=== PATIENT | female | born 1960 | race Caucasian/White ===

== ENCOUNTER → 2017-06-07 10:13 | Outpatient (CLI) | payer BC, SELFPAY ==
--- NOTE | 2017-06-07 10:19 | MM_ITS ---
MM Dig screening mamm BI w/CAD CAD Screening COMPARISON: Digital mammograms 12/19/2014 and 02/18/2016 INDICATION: There is a history of breast cancer in the patient's paternal aunt diagnosed after menopause. There has been previous biopsies on each breast. TECHNIQUE: Standard CC and MLO images were obtained. R2 CAD reviewed. FINDINGS: Diffuse heterogenic fibroglandular densities are seen in the central portions of both breast and the findings are fairly symmetrical bilaterally. There are 2 biopsy clips in each breast. There are scattered microcalcifications in both breast which appear to be typical of sclerosing adenosis. There is no suspicious lesion and there are no suspicious microcalcifications. IMPRESSION: Stable exam with diffuse fibro glandular densities throughout. BI-RADS Category: 2 Benign Finding(s) RECOMMENDED FOLLOW-UP: 1YR - 1 YEAR FOLLOW-UP (A letter has been sent to the patient regarding results of the study.)
== END ==
PROVIDERS: Family Provider Internal Medicine Adolescent Medicine; PCP Nurse Practitioner Family; Visit Provider Internal Medicine Adolescent Medicine
DX: Z12.31 Encounter for screening mammogram for malignant neoplasm of breast (principal)
CPT/HCPCS: 77067

== ENCOUNTER → 2018-06-28 10:11 | Outpatient (CLI) | payer BC, SELFPAY ==
--- NOTE | 2018-06-28 10:15 | MM_ITS ---
MM Dig screening mamm BI w/CAD CAD Screening COMPARISON: Digital mammograms with CAD 06/07/2017 and 02/18/2016 INDICATION: There is a history of breast cancer patient maternal aunt diagnosed after menopause. There have been previous biopsies on each breast for benign disease. TECHNIQUE: Standard CC and MLO images were obtained. R2 CAD reviewed. FINDINGS: Prominent diffuse fibroglandular densities are seen throughout both breasts and the findings are bilateral and symmetrical. There are biopsy clips in each breast. Multiple microcalcifications are seen in each breast many of which appear to be typical of sclerosing adenosis. There is no suspicious mass and there are no suspicious microcalcifications. IMPRESSION: Stable exam with no suspicious lesion seen BI-RADS Category: 2 Benign Finding(s) RECOMMENDED FOLLOW-UP: 1YR - 1 YEAR FOLLOW-UP (A letter has been sent to the patient regarding results of the study.)
== END ==
PROVIDERS: PCP Nurse Practitioner Family; Visit Provider Nurse Practitioner Family
DX: Z12.31 Encounter for screening mammogram for malignant neoplasm of breast (principal)
CPT/HCPCS: 77067

== ENCOUNTER → 2019-09-25 08:59 | Outpatient (CLI) | payer BC, SELFPAY ==
--- NOTE | 2019-09-25 09:12 | MM_ITS ---
PROCEDURE: MM DIG SCREENING MAMM BI W/CAD Digital Breast Tomosynthesis Included CLINICAL INDICATION: SCREENING There is a history of breast cancer in the patient's paternal aunt diagnosed after menopause. There have been previous biopsies on each breast for benign disease. COMPARISON: [facility] DIG MAMM-SCREEN KULDIP from 12/29/2014 [facility] DIG MAMM-SCREEN KULDIP from 02/18/2016 [facility] MM Dig screening mamm BI w/CAD from 06/07/2017 [facility] MM Dig screening mamm BI w/CAD from 06/28/2018 TECHNIQUE: Standard CC and MLO images and 3D Tomosynthesis was obtained. R2 CAD reviewed. FINDINGS: Moderately prominent fibroglandular densities are seen in the central portions of both breasts. There are biopsy clips in each breast. There are few scattered benign-appearing microcalcifications in each breast some of which appears suggestive of mild sclerosing adenosis. There is a nodular density deep within the left breast which was likely present previously but shows slight irregularity of the border on today's exam particularly with oriana images. Recommend the patient return for spot compression views and ultrasound for additional evaluation. There are no suspicious microcalcifications. IMPRESSION: Moderate diffuse breast density with possible interval changes small nodular density left breast BI-RAD Category: 0 Need Additional Imaging Evaluation FOLLOW-UP: IMM Immediate Follow-up Recommended (A letter has been sent to the patient regarding results of the study.) Dictated by: Dr. J Luis Cummings MD 09/26/2019 08:[address] J Luis Cummings MD in [place] 09/26/2019 08:34
== END ==
PROVIDERS: PCP Nurse Practitioner Family; Visit Provider Nurse Practitioner Family
DX: Z12.31 Encounter for screening mammogram for malignant neoplasm of breast (principal)
CPT/HCPCS: 77063; 77067

== ENCOUNTER → 2019-10-07 14:09 | Outpatient (CLI) | payer BC, SELFPAY ==
--- NOTE | 2019-10-07 14:16 | MM_ITS ---
PROCEDURE: MM DIG MAMM DX UNILAT LT CAD Digital Breast Tomosynthesis Included CLINICAL INDICATION: ABN MAMM Follow-up abnormal mammogram,, breast nodule COMPARISON: [facility] DIGITAL MAMM-SCREEN BILATERAL from 05/29/2012 [facility] MM Dig screening mamm BI w/CAD from 06/07/2017 [facility] MM Dig screening mamm BI w/CAD from 06/28/2018 MM DIG SCREENING MAMM BI W/CAD from 09/25/2019 US BREAST LT COMPLETE from 10/07/2019 TECHNIQUE: Problem solving views performed along with left breast ultrasound FINDINGS: Average fibroglandular tissue. Stable probably benign calcifications are noted. The area of nodularity appears to compress out on the spot compression view.. There remains some minimal nodularity noted on the CC view measuring approximately 6 mm. This however does not appear significantly changed dating back at least a 06/07/2017. Left breast ultrasound: There is a hypoechoic area at 12 o'clock measuring 6 by 4 mm and may represent a complicated cyst. No suspicious nodules are evident.. At 5 o'clock there is a 5 mm cyst. IMPRESSION: Probably benign findings. Recommend six-month follow-up BI-RAD Category: 3 Probably Benign Finding Short Term Follow-up FOLLOW-UP: 6M 6Month Follow-up (A letter has been sent to the patient regarding results of the study.) Dictated by: Brett Root MD 10/10/2019 13:08 Electronically signed by Brett Root MD in [place] 10/10/2019 13:08
== END ==
PROVIDERS: PCP Nurse Practitioner Family; Visit Provider Nurse Practitioner Family
DX: R92.8 Other abnormal and inconclusive findings on diagnostic imaging of breast (principal)
CPT/HCPCS: 76641; 77061; 77065; G0279

== ENCOUNTER → 2020-04-08 13:48 | Outpatient (CLI) | payer BC, SELFPAY ==
--- NOTE | 2020-04-08 13:52 | MM_ITS ---
PROCEDURE: MM DIG MAMM DX UNILAT LT CAD Digital Breast Tomosynthesis Included CLINICAL INDICATION: ABN MAMM 6 MON F/U Follow-up abnormal mammogram COMPARISON: [facility] MM Dig screening mamm BI w/CAD from 06/28/2018 MG MM DIG SCREENING MAMM BI W/CAD from 09/25/2019 MG MM DIG MAMM DX UNILAT LT CAD from 10/07/2019 US US BREAST LT COMPLETE from 10/07/2019 US US BREAST LT COMPLETE from 04/08/2020 TECHNIQUE: Standard CC and MLO images and 3D Tomosynthesis was obtained. R2 CAD reviewed. FINDINGS: There is average fibroglandular tissue. Mammogram show scattered benign-appearing calcifications. No malignant appearing mass or malignant-appearing microcalcification. There is an area of nodularity in the central aspect of the left breast as seen on the tomogram. This area however does appear to compress out on the spot compression view. Small area of asymmetry noted in the medial aspect of the left breast as before. Tomograms show a stable 5 mm nodule in this region. No new nodules are evident. Clips are present in the left breast laterally. Ultrasound shows a 4 mm hypoechoic nodule at 12 o'clock and a flat like 4 mm hypoechoic nodule at 5 o'clock. At 6 o'clock there is a 3 mm cyst. At 10 o'clock there is an elongated cyst measuring 8 x 9 x 2 mm which may account for some of the mammographic abnormality IMPRESSION: Probably benign findings. Recommend screening mammogram in 6 months with left breast ultrasound follow-up to confirm 1 year stability. BI-RAD Category: 2 Benign Finding(s) FOLLOW-UP: 6M 6Month Follow-up (A letter has been sent to the patient regarding results of the study.) Dictated by: Brett Root MD 04/16/2020 11:09 Brett Root MD in [place] 04/16/2020 11:09
== END ==
PROVIDERS: PCP Nurse Practitioner Family; Visit Provider Nurse Practitioner Family
DX: R92.8 Other abnormal and inconclusive findings on diagnostic imaging of breast (principal)
CPT/HCPCS: 76641; 77061; 77065; G0279

== ENCOUNTER → 2020-10-25 12:52 | Outpatient (CLI) | payer BC, SELFPAY ==
--- NOTE | 2020-10-25 12:57 | MM_ITS ---
PROCEDURE: MM DIG SCREENING MAMM BI W/CAD Digital Breast Tomosynthesis Included CLINICAL INDICATION: ABN MAMM There is a history of breast cancer in the patient's paternal aunt diagnosed after menopause. There have been previous biopsies on each breast disease. COMPARISON: MG MM DIG SCREENING MAMM BI W/CAD from 09/25/2019 MG MM DIG MAMM DX UNILAT LT CAD from 10/07/2019 MG MM DIG MAMM DX UNILAT LT CAD from 04/08/2020 TECHNIQUE: Standard CC and MLO images and 3D Tomosynthesis was obtained. R2 CAD reviewed. FINDINGS: Mild to moderate scattered fibroglandular densities are seen throughout breasts and the findings symmetrical is a biopsy clip in each breast. There a few of benign-appearing microcalcifications in each breast. There are a couple stable small nodular densities central portion left breast. There is no suspicious lesion and no suspicious microcalcifications. IMPRESSION: Moderate breast density with no suspicious lesions seen BI-RAD Category: 2 Benign Finding(s) FOLLOW-UP: 1YR 1 Year Follow-up (A letter has been sent to the patient regarding results of the study.) Dictated by: Dr. J Luis Cummings MD 10/27/2020 08:33 Dr. J Luis Cummings MD in [place] 10/27/2020 08:33
--- NOTE | 2020-10-25 12:58 | US_ITS ---
PROCEDURE: US BREAST LT COMPLETE CLINICAL INDICATION: ABN MAMM COMPARISON: US US BREAST LT COMPLETE from 04/08/2020 FINDINGS: There is a stable small benign-appearing cyst 6 o'clock position mid breast measuring 0.3x 0.4 by point 0.2 cm. There is a stable small oval hypoechoic solid lesion at the 12 o'clock position near the nipple measuring 0.4 x 0.2 by 0.3 cm in this may be a small fibroadenoma. There are normal appearing nodes in the axilla. IMPRESSION: Stable small benign-appearing cyst is stable hypoechoic lesion either a small fibroadenoma a small cyst with internal debris, continue with yearly screening mammography Dictated by: Dr. J Luis Cummings MD 10/27/2020 09:05 Dr. J Luis Cummings MD in [place] 10/27/2020 09:05
== END ==
PROVIDERS: PCP Nurse Practitioner Family; Visit Provider Nurse Practitioner Family
DX: R92.8 Other abnormal and inconclusive findings on diagnostic imaging of breast (principal)
CPT/HCPCS: 76641; 77063; 77067

== ENCOUNTER 2021-04-18 22:16 | Emergency (ER) | payer BC, SELFPAY ==
[2021-04-18 22:17] VITALS: BP 145/78; PULSE 103; RESP 18; TEMP 36.7; O2SAT 95; BMI 36.0
--- NOTE | 2021-04-18 22:24 | ECG_ITS ---
APPROVED REPORT Exam: Resting ECG HR:101 bpm ECG Measurements Heart Rate 101 AXES AR 186 P 54 QRSd 72 QRS 73 QT 350 T 52 QTc 453 Conclusion Sinus tachycardia Poor R wave progression Abnormal ECG Electronically signed by : Ad Brian MD 04/19/2021 17:56:25
[2021-04-18 22:58] LABS: POC Glucose,Bedside 126 (70-110)
--- NOTE | 2021-04-18 23:32 | CT_ITS ---
PROCEDURE INFORMATION: Exam: CT Head Without Contrast Exam date and time: 04/18/2021 11:32 PM Age: 60 years old Clinical indication: Dizziness TECHNIQUE: Imaging protocol: Computed tomography of the head without contrast. Radiation optimization: All CT scans at this facility use at least one of these dose optimization techniques: automated exposure control; mA and/or kV adjustment per patient size (includes targeted exams where dose is matched to clinical indication); or iterative reconstruction. COMPARISON: No relevant prior studies available. FINDINGS: Brain: Normal. No hemorrhage. Unremarkable white matter. No mass effect. Cerebral ventricles: No ventriculomegaly. Paranasal sinuses: Mild mucosal thickening in the left frontal and ethmoid sinuses. Mastoid air cells: Visualized mastoid air cells are well aerated. Bones/joints: Unremarkable. No acute fracture. Soft tissues: Unremarkable. IMPRESSION: No acute intracranial pathology
[2021-04-18 23:41] LABS: Basophils # 0.1 K/mm3 (0-0.2); Basophils % 0.5 % (0.1-2.0); Eosinophils # 0.2 K/mm3 (0.0-0.4); Hematocrit 46.7 % (37.0-47.0); Hemoglobin 15.3 g/dL (12.2-16.2); Lymphocytes # 3.9 K/mm3 (0.7-4.5); Lymphocytes % 35.7 % (10-50); Mean Corpuscular HGB Conc 32.7 g/dL (31.8-35.4); Mean Corpuscular Hemoglobin 30.6 pg (27.0-31.2); Mean Corpuscular Volume 93.7 fl (81-99); Mean Platelet Volume 8.5 fl (7.4-10.4); Monocytes # 0.5 K/mm3 (0.1-1.0); Monocytes % 4.9 % (1.7-9.3); Neutrophils # 6.3 K/mm3 (1.8-7.8); Platelet Count 241 K/mm3 (142-424); Red Blood Count 4.99 M/mm3 (4.20-5.40); Red Cell Distribution Width 13.3 % (11.5-17.5); White Blood Count 11.1 K/mm3 (4.8-10.8)
[2021-04-18 23:49] LABS: Alanine Aminotransferase 23 U/L (12-78); Albumin Level 4.2 g/dl (3.5-5.0); Albumin/Globulin Ratio 1.6 (1.1-1.8); Alkaline Phosphatase 69 U/L (38-126); Anion Gap 9.8 mEq/L (5-15); Aspartate Amino Transferase 28 U/L (14-36); Bilirubin,Total 0.2 mg/dl (0.2-1.3); Blood Urea Nitrogen 15 mg/dl (7-17); Calcium 9.5 mg/dl (8.4-10.2); Carbon Dioxide 29 mmol/L (22.0-30.0); Chloride 103 mmol/L (98-107); Creatinine Clearance Estimated 97 mL/min (50-200); Estimated Glomerular Filt Rate 102 ml/min (>60); GFR (African American) 123 ML/MIN (>60); Globulin 2.7 g/dL (1.3-3.2); Glucose 121 mg/dl (74-100); Potassium 3.8 mmoL/L (3.5-5.1); Sodium 138 mmol/L (136-145); Total Protein,Serum 6.9 g/dl (6.3-8.2)
[2021-04-18 23:54] LABS: C-Reactive Protein 2.3 mg/L (0-4)
[2021-04-19 00:10] LABS: Procalcitonin < 0.030 ng/mL (0.0-2.0)
--- NOTE | 2021-04-19 00:13 | [facility].EDDIZZ ---
ED Disposition Clinical Impression: Episodic lightheadedness Disposition: Home, Self-Care Condition on Discharge: Good Instructions: Dizziness, Nonvertigo Additional Instructions: call pcp for close f/u and work up Referrals: Val Urbano APRN [Primary Care Provider] - - Critical Care Critical Care Time: No Attestation: On 04/18/21, the high probability of a clinically significant, sudden or life threatening deterioration of the following system(s) required my full and direct attention, intervention and personal management. The time I documented below is in addition to time spent performing reported procedures but includes the following listed in this critical care notation. Medical Decision Making - Medical Records Medical records reviewed: Yes: I reviewed the patient's medical records. - Alex Inquiry Pt receiving controlled substance: No Vital Signs: 04/18/21 22:17 Temperature 98.0 F Temperature Source Oral Pulse Rate [Apical] 103 H Respiratory Rate 18 Blood Pressure [Right Arm] 145/78 H Blood Pressure Mean [Right Arm] 100 Blood Pressure Source [Right Arm] Automatic Cuff Blood Pressure Position [Right Arm] Sitting 02 Sat by Pulse Oximetry 95 Oxygen Delivery Method Room Air - Lab Data Lab results reviewed: Yes: I reviewed the patient's lab results. Lab Results 04/18/21 22:50: POC Glucose 126 H 04/18/21 23:26: WBC 11.1 H, RBC 4.99, Hgb 15.3, Hct 46.7, MCV 93.7, MCH 30.6, MCHC 32.7, RDW 13.3, Plt Count 241, MPV 8.5, Neut % (Auto) 57.0, Lymph % (Auto) 35.7, [place] % (Auto) 4.9, Eos % (Auto) 2.0, Baso % (Auto) 0.5, Neut # (Auto) 6.3, Lymph # (Auto) 3.9, [place] # (Auto) 0.5, Eos # (Auto) 0.2, Baso # (Auto) 0.1, ESR 17 04/18/21 23:26: Sodium 138, Potassium 3.8, Chloride 103, Carbon Dioxide 29, Anion Gap 9.8, BUN 15, Creatinine 0.60, Estimated Creat Clear 97, Estimated GFR 102, Est GFR ( Amer) 123, Glucose 121 H, Calcium 9.5, Total Bilirubin 0.2, AST 28, ALT 23, Alkaline Phosphatase 69, C-Reactive Protein 2.3, Total Protein 6.9, Albumin 4.2, Globulin 2.7, Albumin/Globulin Ratio 1.6, Procalcitonin < 0.030 Result diagrams: 04/18/21 23:26 04/18/21 23:26 - CT Data CT Scan: Head Time Received: 02:[address] Reviewed: Yes: I have viewed the radiologist's interpretation Preliminary Findings: Normal/NAD Medical Decision Narrative: stable exam and labs with no acute changes ct - head - will need mri/mra of head and neck and possible medication affect Dizzy HPI - General Chief Complaint: Dizziness Stated Complaint: flushed feeling unsteady feeling blurry vision Time Seen by Provider: 04/18/21 23:00 Mode of Arrival: Ambulatory Source of Information: Patient, Medical Record Limitations: No Limitations Description of Symptoms (Recalled from ER Triage Doc. by RN): Patient sattes that at roughly 8pm she began feeling flushed and her vision has been going in and out of focus, right eye is especially bad. States that this has happened roughly 4 times in the last 3 months. Does report that she see's an flooring professional for issues with glaucoma and uses eye drops for increased pressure. - History of Present Illness HPI Narrative: pt with 4 episodes of flushed/warm feeling and assoc blurred vision which lasts a few moments w/o loss of vision or headache and no speech or motor sx - hx of glaucoma and uses drops - no assoc palpitations MD complaint: dizziness Onset (ago): hour(s) Timing: waxing/waning, now resolved Description: other (flushed with blurred vision ) History of similar episodes: Yes History of trauma: No Severity: moderate Associated symptoms: denies other symptoms - Related Data Allergies Allergy/AdvReac Type Severity Reaction Status Date / Time Penicillins [PENICILLINS] Allergy Mild Unverified 04/24/17 14:59 [facility] History - Hepatitis A Screen Drug use history?: No High risk sexual behaviors?: No History of sexually transmitted infection?: No 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
[2021-04-19 00:18] LABS: Erythrocyte Sedimentation Rate 17 mm/hr (0-30)
[2021-04-19 02:22] VITALS: BP 134/82; PULSE 91; RESP 18; TEMP 36.7; O2SAT 95
== END 2021-04-19 02:31 | disposition home or self-care (01) ==
PROVIDERS: Emergency Provider Emergency Medicine; PCP Nurse Practitioner Family
DX: R42 Dizziness and giddiness (principal)
CPT/HCPCS: 70450; 80053; 82962; 84145; 85025; 85651; 86140; 93005; 99282

== ENCOUNTER → 2021-05-03 08:22 | Outpatient (CLI) | payer BC, SELFPAY ==
[2021-05-03 09:00] LABS: Basophils # 0.1 K/mm3 (0-0.2); Basophils % 1.8 % (0.1-2.0); Eosinophils # 0.2 K/mm3 (0.0-0.4); Eosinophils % 2.1 % (0.1-12.0); Hematocrit 48.8 % (37.0-47.0); Hemoglobin 15.7 g/dL (12.2-16.2); Lymphocytes # 3.2 K/mm3 (0.7-4.5); Lymphocytes % 40.1 % (10-50); Mean Corpuscular HGB Conc 32.1 g/dL (31.8-35.4); Mean Corpuscular Hemoglobin 30.8 pg (27.0-31.2); Mean Corpuscular Volume 95.8 fl (81-99); Mean Platelet Volume 9.5 fl (7.4-10.4); Monocytes # 0.4 K/mm3 (0.1-1.0); Monocytes % 4.9 % (1.7-9.3); Neutrophils # 4.1 K/mm3 (1.8-7.8); Platelet Count 250 K/mm3 (142-424); Red Cell Distribution Width 13.6 % (11.5-17.5); White Blood Count 7.9 K/mm3 (4.8-10.8)
--- NOTE | 2021-05-03 09:09 | CA_ITS ---
APPROVED REPORT Cigar Head Pegger: Gladis Martin RCS, RVS Laterality: Bilateral Study Quality: Adequate Indications: Visual disturbances , headaches, Smoker Risk Factors Smoking Doppler Spectral Velocity Analysis ECA (R) 124.00/13.90 cm/s ECA (L) 105.90/21.80 cm/s dICA (R) 96.00/25.70 cm/s dICA (L) 112.20/37.40 cm/s Shahid (R) 74.50/24.40 cm/s Shahid (L) 119.00/47.10 cm/s pICA (R) 80.30/28.90 cm/s pICA (L) 70.60/23.80 cm/s dCCA (R) 117.60/39.60 cm/s dCCA (L) 84.00/19.70 cm/s pCCA (R) 113.30/32.10 cm/s pCCA (L) 121.70/37.70 cm/s Vert (R) 79.70/18.00 cm/s Vert (L) 38.90/13.50 cm/s ICA/CCA 0.82 ICA/CCA 1.42 Findings Duplex evaluation demonstrates antegrade flow of the bilateral Vertebral Arteries. Duplex evaluation demonstrates stenosis of the right proximal internal carotid artery in the range of 20-49%. Duplex evaluation demonstrates stenosis of the left proximal internal carotid artery in the range of 20-49%. Conclusion Duplex evaluation demonstrates antegrade flow of the bilateral Vertebral Arteries. Duplex evaluation demonstrates stenosis of the right proximal internal carotid artery in the range of 20-49%. Duplex evaluation demonstrates stenosis of the left proximal internal carotid artery in the range of 20-49%. Electronically signed by : Bertt Root MD 05/03/2021 16:10:43
[2021-05-03 09:26] LABS: Alanine Aminotransferase 24 U/L (12-78); Albumin Level 4.3 g/dl (3.5-5.0); Albumin/Globulin Ratio 1.9 (1.1-1.8); Alkaline Phosphatase 55 U/L (38-126); Anion Gap 12.4 mEq/L (5-15); Aspartate Amino Transferase 28 U/L (14-36); Bilirubin,Total 0.5 mg/dl (0.2-1.3); Blood Urea Nitrogen 10 mg/dl (7-17); Calcium 9.7 mg/dl (8.4-10.2); Carbon Dioxide 28 mmol/L (22.0-30.0); Chloride 105 mmol/L (98-107); Chol/HDL Ratio 3.4 (1-3.5); Cholesterol 144 mg/dl (140-200); Estimated Glomerular Filt Rate 125 ml/min (>60); GFR (African American) 152 ML/MIN (>60); Globulin 2.3 g/dL (1.3-3.2); Glucose 106 mg/dl (74-100); HDL Cholesterol 42 mg/dl (40-60); Potassium 4.4 mmoL/L (3.5-5.1); Sodium 141 mmol/L (136-145); Total Protein,Serum 6.6 g/dl (6.3-8.2); Triglycerides 130 mg/dl (30-150); VLDL Cholesterol 26 mg/dL (0-40)
[2021-05-03 09:37] LABS: Direct LDL Cholesterol 80.26 mg/dL (100-129)
[2021-05-03 09:43] LABS: 25-OH Vitamin D, Total 35.6 ng/mL (30-100)
[2021-05-03 10:15] LABS: Vitamin B12 385 pg/mL (239-931)
== END ==
PROVIDERS: PCP Nurse Practitioner Family; Visit Provider Nurse Practitioner Family
DX: R51.9 Headache, unspecified (principal); H53.9 Unspecified visual disturbance; E78.00 Pure hypercholesterolemia, unspecified; R73.03 Prediabetes; E53.8 Deficiency of other specified B group vitamins; E55.9 Vitamin D deficiency, unspecified
CPT/HCPCS: 36415; 80053; 80061; 82306; 82607; 83036; 85025; 93880

== ENCOUNTER → 2021-12-23 09:55 | Outpatient (CLI) | payer BC, SELFPAY ==
--- NOTE | 2021-12-23 10:01 | MM_ITS ---
PROCEDURE INFORMATION: Exam: MG Bilateral Screening 3D Mammography Exam date and time: 12/23/2021 9:57 AM Age: 61 years old Clinical indication: Screening examination. A paternal aunt had breast cancer. TECHNIQUE: Imaging protocol: Bilateral Screening tomosynthesis and 2D mammography including computer-aided detection (CAD) when performed. COMPARISON: 1. MG MM DIG SCREENING MAMM BI W/CAD 10/25/2020 12:59 PM 2. MG MM DIG MAMM DX UNILAT LT CAD 04/08/2020 2:08 PM 3. MG MM DIG MAMM DX UNILAT LT CAD 10/07/2019 2:39 PM 4. MG MM DIG SCREENING MAMM BI W/CAD 09/25/2019 9:28 AM FINDINGS: MAMMOGRAPHY: Breast composition: There are scattered areas of fibroglandular density. Mass: No suspicious mass. Architectural distortion: None. Calcifications: No suspicious calcifications. Asymmetric density: None. Skin thickening: None. Axillary adenopathy: None. Other: Bilateral biopsy clips. IMPRESSION: No mammographic evidence of malignancy. Annual screening is recommended unless otherwise clinically indicated. ASSESSMENT: BI-RADS Category 1: Negative
== END ==
PROVIDERS: PCP Nurse Practitioner Family; Visit Provider Nurse Practitioner Family
DX: Z12.31 Encounter for screening mammogram for malignant neoplasm of breast (principal)
CPT/HCPCS: 77063; 77067

== ENCOUNTER → 2023-01-29 16:20 | Outpatient (CLI) | payer BC, SELFPAY ==
--- NOTE | 2023-01-29 16:24 | MM_ITS ---
PROCEDURE INFORMATION: Exam: MG Bilateral Screening 3D Mammography Exam date and time: 01/29/2023 4:17 PM Age: 62 years old Clinical indication: Screening examination. A paternal aunt had breast cancer. TECHNIQUE: Imaging protocol: Bilateral Screening tomosynthesis and 2D mammography including computer-aided detection (CAD) when performed. COMPARISON: 1. MG MM DIG SCREENING MAMM BI W/CAD 12/23/2021 9:57 AM 2. MG MM DIG SCREENING MAMM BI W/CAD 10/25/2020 12:59 PM 3. MG MM DIG MAMM DX UNILAT LT CAD 04/08/2020 2:08 PM 4. MG MM DIG MAMM DX UNILAT LT CAD 10/07/2019 2:39 PM FINDINGS: MAMMOGRAPHY: Breast composition: There are scattered areas of fibroglandular density. Mass: None. Architectural distortion: None. Calcifications: No suspicious calcifications. Asymmetric density: None. Skin thickening: None. Axillary adenopathy: None. Other: Bilateral biopsy clips. IMPRESSION: No mammographic evidence of malignancy. Annual screening is recommended unless otherwise clinically indicated. ASSESSMENT: BI-RADS Category 2: Benign
== END ==
PROVIDERS: PCP Nurse Practitioner Family; Visit Provider Nurse Practitioner Family
DX: Z12.31 Encounter for screening mammogram for malignant neoplasm of breast (principal)
CPT/HCPCS: 77063; 77067

== ENCOUNTER 2024-01-22 12:50 | Outpatient (CLI) | payer BC, SELFPAY ==
--- NOTE | 2024-01-22 12:57 | US_ITS ---
PROCEDURE INFORMATION: Exam: US Right Breast, Complete MG Right Diagnostic Breast Tomosynthesis Exam date and time: 01/22/2024 1:11 PM Age: 63 years old Clinical indication: Palpable concern in the right breast. TECHNIQUE: Imaging protocol: Complete ultrasound of all four quadrants of the right breast and the retroareolar regions, including ultrasound of the axilla when performed. Right Diagnostic tomosynthesis and 2D mammography including computer-aided detection (CAD) when performed. Unilateral or bilateral exam. COMPARISON: 1. MG MM DIG SCREENING MAMM BI W/CAD 01/29/2023 4:17 PM 2. MG MM DIG SCREENING MAMM BI W/CAD 12/23/2021 9:57 AM FINDINGS: MAMMOGRAPHY: Breast composition: There are scattered areas of fibroglandular density. Breast mammogram findings: Right breast full field tomosynthesis and spot compression were obtained over the region of palpable concern. Mass: No suspicious masses. Architectural distortion: None. Calcifications: No suspicious calcifications. Asymmetric density: None. Skin thickening: None. Axillary adenopathy: None. ULTRASOUND: Breast ultrasound findings: Right breast ultrasound: The right breast was evaluated with ultrasound. At 11 o'clock, 5 cm from nipple there is a parallel circumscribed hypoechoic mass measuring 0.7 x 0.3 x 0.5 cm. There is no sonographic abnormality in the region of palpable concern at 9 o'clock 8 cm from the nipple. No abnormal lymph nodes in the axilla. IMPRESSION: 1. No mammographic or sonographic finding to explain the region of concern in the right breast. Recommend clinical follow-up. 2. Incidentally noted complicated cyst or mass in the right breast at 11 o'clock probably benign. Recommend six-month follow-up right breast ultrasound 3. The patient is due for left breast screening. ASSESSMENT: BI-RADS Category 0: Incomplete- Need Additional Imaging Evaluation.
== END 2024-01-22 23:59 | disposition home or self-care (01) ==
LOC: RAD 12:51
PROVIDERS: PCP Nurse Practitioner Family; Visit Provider Nurse Practitioner Family
DX: N63.11 Unspecified lump in the right breast, upper outer quadrant (principal)
CPT/HCPCS: 76641; 77061; 77065; G0279

== ENCOUNTER 2024-01-31 10:50 | Outpatient (CLI) | payer BC, SELFPAY ==
--- NOTE | 2024-01-31 10:53 | MM_ITS ---
PROCEDURE INFORMATION: Exam: MG Left Screening 3D Mammography Exam date and time: 01/31/2024 10:44 AM Age: 63 years old Clinical indication: Left breast screening mammogram. Diagnostic mammogram and ultrasound of the right breast was performed on 01/22/2024. The patient was due for left screening mammogram TECHNIQUE: Imaging protocol: Left Screening tomosynthesis and 2D mammography including computer-aided detection (CAD) when performed. COMPARISON: 1. MG MM DIG MAMM DX UNILAT RT CAD 01/22/2024 12:59 PM 2. MG MM DIG SCREENING MAMM BI W/CAD 01/29/2023 4:17 PM 3. MG MM DIG SCREENING MAMM BI W/CAD 12/23/2021 9:57 AM 4. MG MM DIG SCREENING MAMM BI W/CAD 10/25/2020 12:59 PM FINDINGS: MAMMOGRAPHY: Breast composition: There are scattered areas of fibroglandular density. Mass: None. Architectural distortion: No new or suspicious architectural distortion. Calcifications: Stable benign-appearing calcifications are present. No new or suspicious cluster of microcalcifications have developed. Asymmetric density: No new or suspicious asymmetric density is present Skin thickening: None. Axillary adenopathy: None. IMPRESSION: No mammographic evidence of malignancy. Recommend annual screening mammography unless otherwise clinically indicated. ASSESSMENT: BI-RADS category 2: Benign.
== END 2024-01-31 23:59 | disposition home or self-care (01) ==
LOC: RAD 10:50
PROVIDERS: PCP Nurse Practitioner Family; Visit Provider Nurse Practitioner Family
DX: Z12.31 Encounter for screening mammogram for malignant neoplasm of breast (principal)
CPT/HCPCS: 77063; 77067

== ENCOUNTER 2024-07-24 07:49 | Outpatient (CLI) | payer BC, SELFPAY ==
--- NOTE | 2024-07-24 07:50 | MM_ITS ---
PROCEDURE INFORMATION: Exam: US Right Breast, Complete MG Right Diagnostic Breast Tomosynthesis Exam date and time: 07/24/2024 8:03 AM Age: 63 years old Clinical indication: Palpable abnormality in the right breast TECHNIQUE: Imaging protocol: Complete ultrasound of all four quadrants of the right breast and the retroareolar regions, including ultrasound of the axilla when performed. Right Diagnostic tomosynthesis and 2D mammography including computer-aided detection (CAD) when performed. Unilateral or bilateral exam. COMPARISON: 1. MG MM DIG MAMM DX UNILAT RT CAD 01/22/2024 12:59 PM 2. MG MM DIG SCREENING MAMM BI W/CAD 01/29/2023 4:17 PM FINDINGS: MAMMOGRAPHY: Breast composition: There are scattered areas of fibroglandular density. Breast mammogram findings: There is no stellate mass, architectural distortion or suspicious microcalcifications to suggest malignancy. No skin thickening or axillary adenopathy. A skin marker was placed over an area of palpable concern in the right lateral breast. No suspicious findings on routine or spot compression views. ULTRASOUND: Breast ultrasound findings: Sonographic images of the right breast including the retroareolar region, all 4 quadrants and the axilla do not demonstrate any solid or cystic masses. Cursors were placed over normal fibroglandular structures in the 11 o'clock axis 5 cm from the nipple. No focal findings with particular attention to the 9 o'clock axis 8 cm from the nipple where the patient reports a palpable abnormality. No architectural distortion or acoustical shadowing. No skin thickening or axillary adenopathy. IMPRESSION: Palpable abnormality in the right breast corresponds both mammographically and sonographically to normal fibroglandular structures. There is no mammographic evidence of malignancy. Further evaluation of a palpable abnormality should be based on clinical grounds regardless of radiographic findings or lack thereof. Annual mammographic screening is recommended unless otherwise clinically indicated. ASSESSMENT: BI-RADS Category 1: Negative.
== END 2024-07-24 23:59 | disposition home or self-care (01) ==
LOC: RAD 07:49
PROVIDERS: PCP Nurse Practitioner Family; Visit Provider Nurse Practitioner Family
DX: Z12.31 Encounter for screening mammogram for malignant neoplasm of breast (principal); R92.8 Other abnormal and inconclusive findings on diagnostic imaging of breast; N63.11 Unspecified lump in the right breast, upper outer quadrant
CPT/HCPCS: 76641; 77061; 77065; G0279

== ENCOUNTER 2025-01-30 09:17 | Outpatient (CLI) | payer MEDICARE, SELFPAY ==
[2025-01-30 09:55] LABS: Hematocrit 45.1 % (37.0-47.0); Hemoglobin 14.8 g/dL (12.2-16.2); Immature Granulocytes % 0.1 %; Mean Corpuscular HGB Conc 32.8 g/dL (31.8-35.4); Mean Corpuscular Hemoglobin 30.4 pg (27.0-31.2); Mean Corpuscular Volume 92.6 fl (81-99); Nucleated Red Blood Cells % 0 %; Platelet Count 240 K/mm3 (142-424); Red Blood Count 4.87 M/mm3 (4.20-5.40); Red Cell Distribution Width-SD 46.9 fL; White Blood Count 7.6 K/mm3 (4.8-10.8)
[2025-01-30 10:25] LABS: Hemoglobin A1C 6.2 % (4.0-6.0)
[2025-01-30 10:47] LABS: Cholesterol 128 mg/dl (140-200); HDL Cholesterol 37 mg/dl (40-60); Triglycerides 107 mg/dl (30-150)
[2025-01-30 11:02] LABS: 25-OH Vitamin D, Total 34.4 ng/mL (30-100)
[2025-01-30 11:03] LABS: Free T4 (Free Thyroxine) 1.06 ng/dl (0.78-2.19)
[2025-01-30 11:18] LABS: Thyroid Stimulating Hormone 2.11 uIU/mL (0.465-4.68)
[2025-01-30 11:37] LABS: Vitamin B12 491 pg/mL (239-931)
== END 2025-01-30 23:59 | disposition home or self-care (01) ==
LOC: LAB 09:19
PROVIDERS: PCP Nurse Practitioner Family; Visit Provider Nurse Practitioner Family
DX: Z00.00 Encounter for general adult medical examination without abnormal findings (principal); E53.8 Deficiency of other specified B group vitamins; E55.9 Vitamin D deficiency, unspecified; R73.03 Prediabetes; E78.00 Pure hypercholesterolemia, unspecified
CPT/HCPCS: 36415; 80061; 82306; 82607; 83036; 84439; 84443; 85025

== ENCOUNTER 2025-02-13 15:37 | Outpatient (CLI) | payer MEDICARE, SELFPAY ==
--- NOTE | 2025-02-13 16:11 | MM_ITS ---
PROCEDURE INFORMATION: Exam: MG Bilateral Screening 3D Mammography Exam date and time: 02/13/2025 4:11 PM Age: 64 years old Clinical indicationScreening. No family history of breast cancer. TECHNIQUE: Imaging protocol: Bilateral Screening tomosynthesis and 2D mammography including computer-aided detection (CAD) when performed. COMPARISON: 1. MG MM DIG MAMM DX UNILAT RT CAD 07/24/2024 8:03 AM 2. MG MM DIG SC MAMM UNILAT LT CAD 01/31/2024 10:44 AM 3. MG MM DIG MAMM DX UNILAT RT CAD 01/22/2024 12:59 PM 4. MG MM DIG SCREENING MAMM BI W/CAD 01/29/2023 4:17 PM FINDINGS: MAMMOGRAPHY: Breast composition: There are scattered areas of fibroglandular density. Mass: Question 1.0 cm mass in the left upper inner quadrant posterior 3rd, 9 to 4 cm from the nipple. Architectural distortion: None. Calcifications: No suspicious calcifications. Asymmetric density: None. Skin thickening: None. Axillary adenopathy: None. IMPRESSION: Patient will be recalled for left diagnostic mammography with spot compression CC and MLO and left sonography for further evaluation of a mass. ASSESSMENT: BI-RADS Category 0: Incomplete: Need Additional Imaging Evaluation.
== END 2025-02-13 23:59 | disposition home or self-care (01) ==
LOC: RAD 15:38
PROVIDERS: PCP Nurse Practitioner Family; Visit Provider Nurse Practitioner Family
DX: Z12.31 Encounter for screening mammogram for malignant neoplasm of breast (principal); R92.323 Mammographic fibroglandular density, bilateral breasts; R92.8 Other abnormal and inconclusive findings on diagnostic imaging of breast
CPT/HCPCS: 77063; 77067

== ENCOUNTER 2025-03-13 12:42 | Outpatient (CLI) | payer MEDICARE, SELFPAY ==
--- NOTE | 2025-03-13 12:44 | MM_ITS ---
PROCEDURE INFORMATION: Exam: US Left Breast, Complete MG Left Diagnostic Breast Tomosynthesis Exam date and time: 03/13/2025 1:16 PM Age: 64 years old Clinical indication: Callback from screening for a left breast finding. TECHNIQUE: Imaging protocol: Complete ultrasound of all four quadrants of the left breast and the retroareolar regions, including ultrasound of the axilla when performed. Left Diagnostic tomosynthesis and 2D mammography including computer-aided detection (CAD) when performed. Unilateral or bilateral exam. COMPARISON: US BREAST LT COMPLETE 10/25/2020 1:21 PM FINDINGS: MAMMOGRAPHY: Breast composition: There are scattered areas of fibroglandular density. Breast mammogram findings: A low-density circumscribed ovoid mass is seen in the upper inner quadrant of the left breast at the posterior depth. There is no distortion or suspicious calcification. ULTRASOUND: Breast ultrasound findings: Ultrasound of the left breast is performed. In the left breast 10 o'clock axis, at approximately 9 cm from the nipple there is a 1.1 x 0.3 x 0.9 cm cyst that correlates to the mammogram finding. There is no solid mass, shadowing, or distortion. No axillary adenopathy. IMPRESSION: 1. Benign cyst in the left breast 10 o'clock axis 9 cm from the nipple correlates to the mammogram finding. 2. Annual bilateral mammographic screening is recommended unless otherwise clinically indicated. ASSESSMENT: BI-RADS Category 2: Benign.
--- OUTSIDE RECORDS SUMMARY | 2025-03-13 12:44 | XMS_ITS | Data Portability ---
Author Organization [facility] ADMIN Address [address] [place] [id number] Care Team Providers Care Dredge Or Barge Shore Hand Name Role Phone EFRAIN URBANO Primary Care Provider Assessment No assessment recorded. Plan of Treatment Reminders Order Date Submit Date Provider Last Modified By Organization Details Last Modified Time Details Appointments None record ed. Lab None record ed. Referral None record ed. Procedures None record ed. Surgeries None record ed. Imaging None record ed. Medication Orders None record ed. Patient TargetsNo targets recorded. Patient Instructions Encounter Date Encounter Id Patient Instructions Last Modified By Organization Details Last Modified Time 02/28/2022 [id number] 1-Discussed findings with Ms. Vail and Dr. Ann Simpson MD. 2-F/u with Dr. Simpson this date. 3-F/u hearing testing as directed/necessar y. Not available 02/28/2022 15:28:22 Reason for Referral None Reported. Procedures Surgical History Date Name Laterality Status Provider Name and Address Organization Details Recorded Time 2 completed Lois Urbano [facility] [place] 02/28/2022 14:26:42 3 Back Surgery completed Lois Yolie FINNEGAN - [facility] [place] 02/28/2022 14:27:00 Imaging Results None recorded. Procedure Notes None recorded. Medical Equipment None Reported. Allergies Allergen ID Allergen Name Allergen Category Reaction Reaction Severity Criticality Documentation Date Start Date Code Code System Note Provider Name and Address Organization Details Recorded Time 90636 penicilli n G Not available itching moderate Not available 02/28/2022 7980 RxNorm Lois patel, [facility] - [facility] [place] 14:26:37 87539 house dust allergeni c extract environme nt,medica tion other mild Not available 02/28/2022 82852 9 RxNorm SIVAN Barlow [facility] [place] 14:26:37 08707 mold extract environme nt hives severe Not available 02/28/2022 54164 8 RxNorm SIVAN Barlow [facility] [place] 14:26:37 Medications Name Sig Start Date Stop Date Status Note LastModified by Organization Details LastModified Time prednisone 20 mg tablet 02/28 completed Not Available Not Available Not Available simvastatin 20 mg tablet TAKE 1 TABLET BY MOUTH EVERY DAY AT BEDTIME active Not Available Not Available No t Available brimonidine 0.2 % eye drops INSTILL 1 DROP IN BOTH EYES TWICE DAILY 02/28 completed Not Available Not Available Not Available timolol maleate 0.5 % eye drops INSTILL 1 DROP IN BOTH EYES EVERY DAY active Not Available Not Available No t Available aspirin active Not Available Not Avail able Not Available flaxseed active Not Available Not Avai lable Not Available levocetirizi ne 5 mg tablet TAKE 1 TABLET BY MOUTH EVERY DAY active Not Available Not Available No t Available Vit 3 active Not Available Not Availa ble Not Available Probiotic active Not Available Not Shila ilable Not Available vit B comp with C-calcium carb active Not Available Not Available Not Available QuickVue At-Home COVID-19 Test kit 02/28 completed Not Available Not Available Not Available Vitals Date Recorded Body height Body mass index (BMI) Body weight Body temperature Heart rate Systolic And Diastolic Provider Name and Address Organization Details Last Updated DateTime 172.72 cm 36 kg/m2 512495. 39 g 98.6 [degF] 91 /min 150/77 mm[Hg] Lois SUAREZ [facility] [place] 14:26:06 Social History Question Answer Notes LastModified by Organizat ion Details LastModified Time Tobacco Smoking Status Current Every Day Smoker [facility] Barlow [facility] [place] 02/28/2022 14:26:56 Do You Have An Advance Directive? Yes Information not available 02/28/2022 Are You Blind Or Do You Have Difficulty Seeing? No Information not available 02/28/2022 What Was The Date Of Your Most Recent Tobacco Screening? 02/25/2022 Information not available 02/28/2022 Are You Passively Exposed To Smoke? Yes Information not available 02/28/2022 How Much Tobacco Do You Smoke? 1 PPD Information not available 02/28/2022 How Many Years Have You Smoked Tobacco? 52 Information not available 02/28/2022 Sex: Unknown Functional Status Question Answer Note LastModified by Organizat ion Details LastModified Time Do you use any illicit or recreational drugs? No Information not available 02/28/2022 What is your level of alcohol consumption? None Information not available 02/28/2022 Do you or have you ever used smokeless tobacco? Never used smokeless tobacco Information not available 02/28/2022 What is your exercise level? Moderate Information not available 02/28/2022 Mental Status Question Answer Note LastModified by Organization D etails LastModified Time Do you feel stressed (tense, restless, nervous, or anxious, or unable to sleep at night)? [id number] Information not available 02/28/2022 Family History Relationship Description Onset Age of this Age Resolved Age Notes LastModified by Organization Details LastModified Time Mother Hypertensive disorder pt. added direct ly (02/25) [email or web address] Not available 02/25/2022 14:50:04 Father Hearing loss pt. added direct ly (02/25) [email or web address] Not available 02/25/2022 14:50:25 Medical History Condition Response Allergies/Hayfever Y Heart Problems N None N Heart Conditions N Ear or Hearing Problems Y Emphysema N Migraines N Thyroid Problems N Depression N Glaucoma N Developmental Delay N Anemia N Immune System Disorder N Anesthesia Complications N Heart Attack (GA) N Anxiety Disorder Y Diabetes Y Obesity Y Bleeding Disorder N Arthritis Y Hearing Loss N Tuberculosis N Acid Reflux (GERD) N Hyperlipidemia N Cancer N Back Problems Y Stroke N Asthma N Sleep Disorder N GERD/Reflux N High Cholesterol Y Heart Disease N Headaches N Fibromyalgia N Hypertension Y Speech Delay N Kidney Disease N Gynecological History Statement/Question Response Abnormal Pap N 12/10/2021 Date of LMP 10/08/2005 Sexually Active? N Menses Monthly N Current Control Method None Age at Menarche 45 Obstetrics History GPAL:G 0 P 0 0 0 0 Past Encounters Encounter ID Performer Location Encounter Start Date Encounter Closed Date Diagnosis/Indication Diagnosis SNOMED-CT Code Diagnosis ICD10 Code Diagnosis IMO Codes Diagnosis Note [id number] Ann Simpson MD [facility] [id number] 02/28/2022 14:16:45 02/28/2022 15:25:35 Otalgia of right ear 3950674408 H92.01 I suspect the pain is referred stemming from TMJ arthralgia . Patient was a little tender on the right side with palpation. I encouraged her to be minding of clinching her jaws and staying away from food that are hard to chew. She can manage the inflammati on with ibuprofen as needed. I would like to get an audiogram in office today for a baseline as she has never had one. I will see her back as needed. Pain of ri ght temporomandibular joint [id number] M26.621 [id number] YARED BARRETT [facility] [id number] 02/28/2022 15:16:30 02/28/2022 15:26:17 Sensorineural hearing loss 63174724 H90.3 Health Concerns Section Related Observation LastModified by Organization Detai ls LastModified Time None Recorded Concern Status LastModified by Organization Details LastModified Time None Recorded Advance Directives Directive Y: Payers Insurance Date Sequence Insurance Name Policy Number Policy [place] Covered Member ID [place] Member ID Guarantor Name 02/28/2022 1 [place] [id number] Tosha Vail [id number] Tosha Vail Notes Date Note Type Note Provider Name and Address Organization Details Recorded Time 02/28/2022 text/html ROS as noted in the HPI 61yo female in the office today to discuss right ear pain. States the pain has been on and off for the past couple of years. States it tends to be more prevalent at night. She wears dentures on the top and bottom. Ann Simpson MD [address], [place], [address], [facility] [place] 03/06/2022 15:24:00 02/28/2022 text/html DizzinessReporte d by Patient Hearing Loss - AdultReported by PatientROS as noted in the HPI Ms. Vail was seen today for an audiologic evaluation due to ongoing ear pain per Dr. Ann Simpson MD. She denies hearing loss, however, she does report more difficulty hearing well in background noise than she used to. She denies tinnitus, dizziness, drainage, aural fullness/pressure, and excessive noise exposure. Family hx of hearing loss includes her father. Otoscopic inspection was unremarkable bilaterally. NIC BUSH, YARED [address], [place], [address], [facility] [place] 02/28/2022 15:28:48 OBGyn Episode No OBEpisode recorded.
== END 2025-03-13 23:59 | disposition home or self-care (01) ==
LOC: RAD 12:43
PROVIDERS: PCP Nurse Practitioner Family; Visit Provider Nurse Practitioner Family
DX: N60.02 Solitary cyst of left breast (principal); R92.322 Mammographic fibroglandular density, left breast
CPT/HCPCS: 76641; 77061; 77065; G0279